=== PATIENT | female | born 1995 | race Caucasian/White ===

== ENCOUNTER 2023-12-04 13:16 | Emergency (ER) | payer OTHER ==
[~2023-12-04] VITALS: Ht 165.1 cm; Wt 68.0 kg
[2023-12-04 13:20] VITALS: BP 118/72; TEMP 98.3
[2023-12-04] MEDS ORDERED: TYL2T PO (15:38)
[2023-12-04] MEDS ORDERED: IBUP-1957 PO (15:38)
[2023-12-04] MEDS ORDERED: oxyCODONE/APAP (5/325 MG) 1 UDTAB TABLET ONE (15:41)
[2023-12-04] MEDS: oxyCODONE/APAP (5/325 MG) 1 UDTAB TABLET PO ONE (15:43)
[2023-12-04 16:01] VITALS: O2SAT 99
== END 2023-12-04 16:02 | disposition home or self-care (01) ==
LOC: ER 13:25
DX: S92.512A Displaced fracture of proximal phalanx of left lesser toe(s), initial encounter for closed fracture (principal); W18.40XA Slipping, tripping and stumbling without falling, unspecified, initial encounter; Y93.01 Activity, walking, marching and hiking; Y92.89 Other specified places as the place of occurrence of the external cause; Y99.8 Other external cause status
CPT/HCPCS: 73630-TC

== ENCOUNTER 2024-12-12 08:33 | Emergency (ER) | payer OTHER ==
[~2024-12-12] VITALS: Ht 165.1 cm; Wt 77.1 kg
[~2024-12-12 08:33] MED LIST: IBUP-1957 PO; TYL2T PO
[2024-12-12 08:40] VITALS: BP 129/71; TEMP 98.3
[2024-12-12] MEDS ORDERED: CYCL5TAB PO (09:11)
[2024-12-12] MEDS ORDERED: KETOROLAC TROMETHAMINE INJ 30 MG/ML VIAL ONE (09:22)
[2024-12-12] MEDS ORDERED: CYCLOBENZAPRINE 10 MG TABLET ONE (09:22)
[2024-12-12] MEDS: KETOROLAC TROMETHAMINE INJ 30 MG/ML VIAL IM ONE (09:27)
[2024-12-12 09:28] VITALS: O2SAT 97
[2024-12-12] MEDS: CYCLOBENZAPRINE 10 MG TABLET PO ONE (09:28)
== END 2024-12-12 09:28 | disposition home or self-care (01) ==
LOC: ER 08:33
DX: M54.2 Cervicalgia (principal); Z79.899 Other long term (current) drug therapy
CPT/HCPCS: 99283; 96372; 84703; J1885